=== PATIENT | male | born 2005 | race Two or more races ===

== ENCOUNTER 2025-01-22 16:56 | Emergency (ER) | payer SELFPAY ==
[2025-01-22 16:57] VITALS: BP 163/103; PULSE 111; RESP 18; TEMP 36.7; O2SAT 98; BMI 36.9
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
== END 2025-01-22 17:43 | disposition home or self-care (01) ==
LOC: SERX 18:04
PROVIDERS: Emergency Provider Family Medicine
DX: Z02.89 Encounter for other administrative examinations (principal)
CPT/HCPCS: 99281